=== PATIENT | female | born 1940 | race Caucasian/White ===

== ENCOUNTER → 2017-05-12 | Outpatient (CLI) | payer MEDICARE ==
--- NOTE | 2017-05-13 09:43 | MM ---
Reason for exam: screening (asymptomatic). Last mammogram was performed 1 year and 1 month ago. History: Patient is postmenopausal. Family history of breast cancer in maternal aunt at age 30. Benign right mammotome panel of the right breast, January 20, 2010. Took estrogen for 1 year. Physical Findings: A clinical breast exam by your physician is recommended on an annual basis and results should be correlated with mammographic findings. MG 3D Screening Mammo W/Cad Bilateral CC and MLO view(s) were taken. XCCL view(s) were taken of the left breast. Prior study comparison: April 19, 2016, bilateral MG 3d screening mammo w/cad. April 08, 2015, bilateral MG screening mammo w CAD. There are scattered fibroglandular densities. No suspicious abnormality. No significant changes when compared with prior studies. ASSESSMENT: Negative, BI-RAD 1 RECOMMENDATION: Routine screening mammogram of both breasts in 1 year.
== END | disposition home or self-care (01) ==
LOC: RADMAMWWP 10:56
PROVIDERS: ATTEND Family Medicine
DX: Z12.31 Encounter for screening mammogram for malignant neoplasm of breast (principal)
CPT/HCPCS: 77063; 77067

== ENCOUNTER → 2019-01-29 | Outpatient (CLI) | payer MEDICARE ==
--- NOTE | 2019-01-29 13:00 | US ---
EXAMINATION TYPE: US carotid duplex BILAT DATE OF EXAM: 01/29/2019 COMPARISON: NONE CLINICAL HISTORY: R42 dizziness and giddiness. Pt states dizziness and light headed EXAM MEASUREMENTS: RIGHT: Peak Systolic Velocity (PSV) cm/sec ----- Right CCA: 79.8 ----- Right ICA: 112.1 ----- Right ECA: 102.9 ICA/CCA ratio: 1.4 RIGHT: End Diastole cm/sec ----- Right CCA: 12.8 ----- Right ICA: 34.4 ----- Right ECA: 0.0 LEFT: Peak Systolic Velocity (PSV) cm/sec ----- Left CCA: 79.9 ----- Left ICA: 112.1 ----- Left ECA: 79.8 ICA/CCA ratio: 1.4 LEFT: End Diastole cm/sec ----- Left CCA: 16.2 ----- Left ICA: 28.0 ----- Left ECA: 0.0 VERTEBRALS (direction of flow): Right Vertebral: Antegrade Left Vertebral: Antegrade Rhythm: Normal No significant stenosis seen IMPRESSION: Mild degree of grayscale atheromatous plaquing with no sonographically evident hemodynam ically significant stenosis within either visualized carotid arterial system. Criteria for Assigning % of Stenosis / Diameter reduction (Estimation based on the indirect measurements of the internal carotid artery velocities (ICA PSV). 1. Normal (no stenosis)=ICA PSV < 125 cm/s: ratio < 2.0: ICA EDV<40 cm/s. 2. Less than 50% stenosis=ICA PSV < 125 cm/s: ratio < 2.0: ICA EDV<40 cm/s. 3. 50 to 69% stenosis=ICA PSV of 125 to 230 cm/s: ration 2.0 ? 4.0: ICA EDV 40-100 cm/s. 4. Greater than 70% stenosis to near occlusion= ICA PSV > 230 cm/s: ratio > 4.0: ICA EDV > 100 cm/s. 5. Near occlusion= ICA PSV velocities may be low or undetectable: variable ratio and ICA EDV. 6. Total occlusion=unable to detect flow.
== END | disposition home or self-care (01) ==
LOC: RADUSWWP 12:15
PROVIDERS: ATTEND Family Medicine
DX: I65.23 Occlusion and stenosis of bilateral carotid arteries (principal)
CPT/HCPCS: 93880

== ENCOUNTER 2021-07-03 22:53 | Emergency (ER) | payer MEDICARE ==
[2021-07-03 23:03] VITALS: TEMP 98.1
[2021-07-03] MEDS ORDERED: SODIUM CHLORIDE 0.9% 1,000 ML IV STA (23:31)
--- NOTE | 2021-07-03 23:31 | ED ---
Abdominal Pain HPI - General Chief Complaint: Abdominal Pain Stated Complaint: abdominal pain Time Seen by Provider: 07/03/21 23:30 Source: patient, RN notes reviewed, old records reviewed Mode of arrival: wheelchair Limitations: no limitations - History of Present Illness Initial Comments: This is an 81-year-old female to the emergency department today. Patient's is a for evaluation of abdominal pain left-sided rib pain no chest pain no shortness of breath. She also complains of bilateral lower Shorty swelling and redness. No fevers. No cough congestion. No nausea vomiting diarrhea. No prior history of similar pain. Redness is new with new medication for about 2 weekspatient has history of diabetes and high blood pressure MD Complaint: abdominal pain -: hour(s) Location: LUQ Radiation: LUQ Severity: moderate Severity scale (1-10): 5 Quality: fullness, sharp Consistency: now resolved Improves With: nothing Worsens With: nothing Context: other (none) Associated Symptoms: nausea, vomiting Treatments Prior to Arrival: other (none) - Related Data Home Medications Medication Instructions Recorded Confirmed Furosemide [Lasix] 20 mg PO DAILY PRN 07/04/21 07/04/21 Levothyroxine Sodium [Synthroid] 75 mcg PO DAILY 07/04/21 07/04/21 Pioglitazone HCl 30 mg PO DAILY 07/04/21 07/04/21 Simvastatin [Zocor] 10 mg PO HS 07/04/21 07/04/21 fluocinolone acetonide oiL 1 applic BOTH EARS BID PRN 07/04/21 07/04/21 [fluocinolone acetonide oiL 0.01% (Otic)] lisinopriL [Prinivil] 20 mg PO DAILY 07/04/21 07/04/21 metFORMIN HCL ER [Glucophage XR] 500 mg PO DAILY 07/04/21 07/04/21 Previous Rx's Medication Instructions Recorded Cephalexin [Keflex] 500 mg PO Q6HR #40 cap 07/04/21 Allergies Allergy/AdvReac Type Severity Reaction Status Date / Time amlodipine Allergy Swelling Verified 07/04/21 00:11 hydralazine Allergy FOGGY, Verified 07/04/21 00:11 CONFUSION, RASH Review of Systems ROS Statement: Those systems with pertinent positive or pertinent negative responses have been documented in the HPI. ROS Other: All systems not noted in ROS Statement are negative. Past Medical History Past Medical History: Diabetes Mellitus, Hypertension, Thyroid Disorder History of Any Multi-Drug Resistant Organisms: None Reported Past Surgical History: Orthopedic Surgery Additional Past Surgical History / Comment(s): thyroid Past Psychological History: No Psychological Hx Reported Smoking Status: Former smoker Past Alcohol Use History: None Reported Past Drug Use History: None Reported General Exam Limitations: no limitations Course Vital Signs 07/03/21 07/04/21 22:58 03:16 Temperature 98.1 F Pulse Rate 82 84 Respiratory 20 18 Rate Blood Pressure 191/89 152/84 O2 Sat by Pulse 100 96 Oximetry - Reevaluation(s) Reevaluation #1: 07/04/21 04:36 medical record is reviewed Reevaluation #2: 07/04/21 04:36 patient continues to have no pain Reevaluation #3: 07/04/21 04:36 patient informed results questions answered Medical Decision Making - Medical Decision Making 81 femaleto the emergency departmentF for evaluation she does present with abdom inal pain left upper quadrant abdominal pain rib pain. No chest pain no shortness of breath EKG is normal troponin negative lab values normal CT abdomen and pelvis is negative. Patient is a been without pain since arrival to the ER and can be discharged home - Lab Data Result diagrams: 07/03/21 23:52 07/03/21 23:52 Lab Results 07/03/21 07/03/21 07/03/21 Range/Units 23:52 23:52 23:52 WBC 9.8 (3.8-10.6) k/uL RBC 4.33 (3.80-5.40) m/uL Hgb 13.4 (11.4-16.0) gm/dL Hct 41.3 (34.0-46.0) % MCV 95.3 D (80.0-100.0) fL MCH 31.0 (25.0-35.0) pg MCHC 32.5 (31.0-37.0) g/dL RDW 14.4 (11.5-15.5) % Plt Count 272 (150-450) k/uL MPV 8.0 Neutrophils % 70 % Lymphocytes % 17 % Monocytes % 7 % Eosinophils % 3 % Basophils % 1 % Neutrophils # 6.8 (1.3-7.7) k/uL Lymphocytes # 1.7 (1.0-4.8) k/uL Monocytes # 0.7 (0-1.0) k/uL Eosinophils # 0.3 (0-0.7) k/uL Basophils # 0.1 (0-0.2) k/uL PT 10.5 (9.0-12.0) sec INR 1.0 (<1.2) APTT 25.7 (22.0-30.0) sec Sodium 135 L (137-145) mmol/L Potassium 4.2 (3.5-5.1) mmol/L Chloride 100 (98-107) mmol/L Carbon Dioxide 26 (22-30) mmol/L Anion Gap 9 mmol/L BUN 26 H (7-17) mg/dL Creatinine 1.41 H (0.52-1.04) mg/dL Est GFR (CKD-EPI)AfAm 40 (>60 ml/min/1.73 sqM) Est GFR (CKD-EPI)NonAf 35 (>60 ml/min/1.73 sqM) Glucose 129 H (74-99) mg/dL Calcium 9.5 (8.4-10.2) mg/dL Total Bilirubin 0.6 (0.2-1.3) mg/dL AST 25 (14-36) U/L ALT 14 (4-34) U/L Alkaline Phosphatase 98 (38-126) U/L Total Protein 7.6 (6.3-8.2) g/dL Albumin 4.3 (3.5-5.0) g/dL Amylase 65 (30-110) U/L Lipase 168 (23-300) U/L Urine Color Urine Appearance (Clear) Urine pH (5.0-8.0) Ur Specific [place] (1.001-1.035) Urine Protein (Negative) Urine Glucose (UA) (Negative) Urine Ketones (Negative) Urine Blood (Negative) Urine Nitrite (Negative) Urine Bilirubin (Negative) Urine Urobilinogen (<2.0) mg/dL Ur Leukocyte Esterase (Negative) Urine WBC (0-5) /hpf 07/04/21 Range/Units 00:04 WBC (3.8-10.6) k/uL RBC (3.80-5.40) m/uL Hgb (11.4-16.0) gm/dL Hct (34.0-46.0) % MCV (80.0-100.0) fL MCH (25.0-35.0) pg MCHC (31.0-37.0) g/dL RDW (11.5-15.5) % Plt Count (150-450) k/uL MPV Neutrophils % % Lymphocytes % % Monocytes % % Eosinophils % % Basophils % % Neutrophils # (1.3-7.7) k/uL Lymphocytes # (1.0-4.8) k/uL Monocytes # (0-1.0) k/uL Eosinophils # (0-0.7) k/uL Basophils # (0-0.2) k/uL PT (9.0-12.0) sec INR (<1.2) APTT (22.0-30.0) sec Sodium (137-145) mmol/L Potassium (3.5-5.1) mmol/L Chloride (98-107) mmol/L Carbon Dioxide (22-30) mmol/L Anion Gap mmol/L BUN (7-17) mg/dL Creatinine (0.52-1.04) mg/dL Est GFR (CKD-EPI)AfAm (>60 ml/min/1.73 sqM) Est GFR (CKD-EPI)NonAf (>60 ml/min/1.73 sqM) Glucose (74-99) mg/dL Calcium (8.4-10.2) mg/dL Total Bilirubin (0.2-1.3) mg/dL AST (14-36) U/L ALT (4-34) U/L Alkaline Phosphatase (38-126) U/L Total Protein (6.3-8.2) g/dL Albumin (3.5-5.0) g/dL Amylase (30-110) U/L Lipase (23-300) U/L Urine Color Colorless Urine Appearance Clear (Clear) Urine pH 5.5 (5.0-8.0) Ur Specific [place] 1.003 (1.001-1.035) Urine Protein Negative (Negative) Urine Glucose (UA) Negative (Negative) Urine Ketones Negative (Negative) Urine Blood Negative (Negative) Urine Nitrite Negative (Negative) Urine Bilirubin Negative (Negative) Urine Urobilinogen <2.0 (<2.0) mg/dL Ur Leukocyte Esterase Trace H (Negative) Urine WBC 6 H (0-5) /hpf - Radiology Data Radiology results: report reviewed (CT abdomen and pelvis negative for acute disease), image reviewed Disposition Clinical Impression: Abdominal pain, Bilateral cellulitis of lower leg Disposition: HOME SELF-CARE Condition: Good Instructions (If sedation given, give patient instructions): Cellulitis (ED), Abdominal Pain (ED) Prescriptions: Cephalexin [Keflex] 500 mg PO Q6HR #40 cap Is patient prescribed a controlled substance at d/c from ED?: No Referrals: Suzi Price DO [Primary Care Provider] - 1-2 days
[2021-07-04 00:28] LABS: Basophils # (A) 0.1 k/uL (0-0.2); Basophils % (A) 1 %; Eosinophils # (A) 0.3 k/uL (0-0.7); Eosinophils % (A) 3 %; HCT 41.3 % (34.0-46.0); HGB 13.4 gm/dL (11.4-16.0); Lymphocytes # (A) 1.7 k/uL (1.0-4.8); Lymphocytes % (A) 17 %; MCHC 32.5 g/dL (31.0-37.0); Monocytes # (A) 0.7 k/uL (0-1.0); Monocytes % (A) 7 %; Neutrophils # (A) 6.8 k/uL (1.3-7.7); Neutrophils % (A) 70 %; Platelet Count 272 k/uL (150-450); RBC 4.33 m/uL (3.80-5.40); RDW 14.4 % (11.5-15.5); WBC 9.8 k/uL (3.8-10.6)
[2021-07-04 00:29] LABS: MCV 95.3 fL (80.0-100.0)
[2021-07-04 00:34] LABS: Appearance,Urine Clear (Clear); Bilirubin,Urine Negative (Negative); Blood,Urine Negative (Negative); Color,Urine Colorless; Glucose,Urine (UA) Negative (Negative); Ketones,Urine Negative (Negative); Leukocyte Esterase,Urine Trace (Negative); Nitrite,Urine Negative (Negative); PH, Urine 5.5 (5.0-8.0); Protein,Urine Negative (Negative); Specific Gravity,Urine 1.003 (1.001-1.035); Urobilinogen,Urine <2.0 mg/dL (<2.0); WBC,Urine 6 /hpf (0-5)
[2021-07-04 00:36] LABS: Partial Thromboplastin Time 25.7 sec (22.0-30.0); Prothrombin Time 10.5 sec (9.0-12.0)
[2021-07-04 00:52] LABS: Albumin 4.3 g/dL (3.5-5.0); Calcium 9.5 mg/dL (8.4-10.2); Total Bilirubin 0.6 mg/dL (0.2-1.3); Total Protein 7.6 g/dL (6.3-8.2)
[2021-07-04 01:08] LABS: Potassium 4.2 mmol/L (3.5-5.1)
--- NOTE | 2021-07-04 02:17 | CT ---
EXAMINATION TYPE: CT abdomen pelvis wo con DATE OF EXAM: 07/04/2021 COMPARISON: None HISTORY: Abd pain CT DLP: 1125.4 mGycm Automated exposure control for dose reduction was used. Images obtained from the diaphragm to the floor of the pelvis with no contrast. Lung bases are clear. There is no pleural effusion. Heart size is normal. There is no pericardial eff usion. Liver spleen and stomach pancreas appear intact. Bile ducts are nondilated. There are multiple calcified gallstones. There is no adrenal mass. Kidneys show normal size and contour. There is no hydronephrosis. There are bilateral renal cortical cysts that measure up to 3.3 cm. There is no retroperitoneal adenopathy. Ur eters are nondilated. Bladder distends smoothly. There is no inguinal hernia. There is no free fluid in the pelvis. There is no pelvic mass. Uterus is anteverted. There are spondylotic changes in the lumbar spine with vacuum disc. There is a mild degenerative firs t-degree L4-5 spondylolisthesis. There is no compression fracture. Bony pelvis is intact. There is no evidence of hip fracture. There is mild sclerosis in the femoral heads. Small degenerative cysts see n in the left femoral head. There is slight lumbar levoscoliosis. There is fat-containing umbilical hernia that measures 5.7 cm. There is no sign of a thickened append ix. There is no mesenteric edema. There is no ascites or free air. There is no bowel obstruction. The re are some large bowel diverticula. There is no diverticulitis. IMPRESSION: Cholelithiasis. No dilated ducts. No evidence of renal stone or obstruction. No sign of appendicitis. Fat-containing umbilical hernia.
[2021-07-04] MEDS ORDERED: CEPHALEXIN 500MG STARTER PACK 4 CAP BTL PO STA (03:08)
[2021-07-04 03:17] VITALS: BP 152/84; PULSE 84; RESP 18
== END 2021-07-04 03:18 | disposition home or self-care (01) ==
LOC: EC 22:53
DX: R10.12 Left upper quadrant pain (principal); L03.116 Cellulitis of left lower limb; L03.115 Cellulitis of right lower limb; E11.9 Type 2 diabetes mellitus without complications; I10 Essential (primary) hypertension; E07.9 Disorder of thyroid, unspecified; Z79.84 Long term (current) use of oral hypoglycemic drugs; Z79.899 Other long term (current) drug therapy; Z87.891 Personal history of nicotine dependence
CPT/HCPCS: 36415; 74176; 80053; 81001; 82150; 83690; 85025; 85610; 85730; 99284